=== PATIENT | female | born 1975 | race Two or more races ===

== ENCOUNTER 2024-02-27 23:58 | Emergency (ER) | payer MEDICAID, SELFPAY ==
--- NOTE | 2024-02-28 00:56 | PC.NURSE ---
NA X1 @0056 FOR NINI
--- NOTE | 2024-02-28 01:10 | PC.NURSE ---
NO ANSWER AT ER LOBBY OR OUTSIDE ER TO BE SEEN BY PROVIDER.
--- NOTE | 2024-02-28 01:24 | PC.NURSE ---
NO ANSWER AT ER LOBBY OR OUTSIDE ER TO BE SEEN BY PROVIDER.
== END 2024-02-28 00:45 | disposition left against medical advice (07) ==
PROVIDERS: Emergency Provider Emergency Medicine
DX: Z53.21 Procedure and treatment not carried out due to patient leaving prior to being seen by health care provider (principal)

== ENCOUNTER 2024-06-11 18:15 | Emergency (ER) | payer MEDICAID, SELFPAY ==
[2024-06-11 18:30] VITALS: BP 135/80; PULSE 100; RESP 19; TEMP 36.8; O2SAT 99; BMI 30.2
--- NOTE | 2024-06-11 18:37 | XR_ITS ---
Examination: Ribs, left, with PA chest, 4 views Technique: Chest PA, RIBS AP, RPO, LPO, 4 views Exam date and time: June 11, 2024 1846 hours INDICATIONS: Patient fell today with injury to the left chest, left rib pain FINDINGS: Normal heart size No pneumothorax hernia No acute left rib fractures Impression: No pneumothorax pulmonary contusion or hemothorax No acute rib fractures depicted
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
== END 2024-06-11 20:12 | disposition home or self-care (01) ==
PROVIDERS: Emergency Provider Emergency Medicine; PCP Physician Assistant
DX: S20.212A Contusion of left front wall of thorax, initial encounter (principal); W01.0XXA Fall on same level from slipping, tripping and stumbling without subsequent striking against object, initial encounter
CPT/HCPCS: 71101; 99283

== ENCOUNTER 2024-07-16 22:24 | Emergency (ER) | payer MEDICAID, SELFPAY ==
[2024-07-16 22:25] VITALS: BMI 31.2
[2024-07-16 23:06] VITALS: BP 131/69; PULSE 99; RESP 18; TEMP 36.9; O2SAT 99
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
[2024-07-16] MEDS: ACETAMINOPHEN 500 MG TABLET 1000 MG PO (23:29)
[2024-07-17 00:33] VITALS: RESP 18
== END 2024-07-17 00:42 | disposition home or self-care (01) ==
LOC: SERX 07-17 00:35
PROVIDERS: Emergency Provider Emergency Medicine; PCP Physician Assistant
DX: S00.83XA Contusion of other part of head, initial encounter (principal); Y04.0XXA Assault by unarmed brawl or fight, initial encounter
CPT/HCPCS: 70450; 70486; 99284; A9270

== ENCOUNTER 2024-07-26 10:00 | Emergency (ER) | payer BC, MEDICAID, SELFPAY ==
[2024-07-26 10:02] VITALS: PULSE 103; RESP 20; O2SAT 98
[2024-07-26 10:06] VITALS: BP 139/106; PULSE 103; RESP 19; TEMP 36.6; O2SAT 100; BMI 31.2
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
[2024-07-26] MEDS: ONDANSETRON INJ 2 MG/ML INJ 2 ML 4 MG IV (12:15)
[2024-07-26] MEDS: TETANUS,DIPHTHERIA TOXOIDS/PF (ADULT) 0.5 ML SYRINGE IMi (12:19)
[2024-07-26] MEDS: MORPHINE SULF INJ 10 MG/ML VIAL 4 MG IVP (12:22)
[2024-07-26 13:18] VITALS: BP 127/78; PULSE 86; RESP 18; TEMP 36.6; O2SAT 100
== END 2024-07-26 13:44 | disposition home or self-care (01) ==
PROVIDERS: Emergency Provider Emergency Medicine; PCP Physician Assistant
DX: S01.81XA Laceration without foreign body of other part of head, initial encounter (principal); S22.32XA Fracture of one rib, left side, initial encounter for closed fracture; V00.141A Fall from scooter (nonmotorized), initial encounter; Z23 Encounter for immunization
CPT/HCPCS: 12013; 70450; 71250; 90471; 90714; 96374; 96375; 99284; J2270; J2405

== ENCOUNTER 2024-07-31 13:46 | Emergency (ER) | payer MEDICAID, SELFPAY ==
[2024-07-31 13:47] VITALS: BMI 29.6
[2024-07-31 14:23] VITALS: BP 155/92; PULSE 87; RESP 18; TEMP 36.6; O2SAT 99
--- NOTE | 2024-07-31 14:30 | PD.EDWOUND ---
ED Wound/Laceration-RME/HPI General Chief Complaint: Wound Recheck / Suture Removal Stated Complaint: Removal of stiches from left forehead Time Seen by Provider: 07/31/24 13:58 Arrival date/time: 07/31/24 13:46 RME / HPI RME / HPI narrative: 49-year-old female patient in for evaluation regarding request for removal of sutures. Patient sustained a laceration to the left forehead, about 5 days ago. Came here and repair was done. Patient is denying any complaints Related Data Home Medications ?Medication ?Instructions ?Recorded ?Confirmed naproxen 500 mg tablet (Naprosyn) 500 mg PO BID Migraine Headache/s 02/04/20 propranolol 20 mg tablet 20 mg PO BID 02/04/20 02/04/20 sumatriptan succinate 50 mg tablet 50 mg PO Q2H PRN Nausea 02/04/20 02/04/20 Previous Rx's ?Medication ?Instructions ?Recorded ondansetron HCl 4 mg tablet 4 mg PO Q6H PRN nausea and 12/28/19 (Zofran) vomiting #30 tabs ibuprofen 600 mg tablet 600 mg PO Q6H PRN pain #30 tabs 07/17/24 Allergies Allergy/AdvReac Type Severity Reaction Status Date / Time No Known Allergies Allergy Verified 07/26/24 10:01 Review of Systems Review of Systems Narrative Review of Systems: Review of system reviewed and within normal limits except mentioned in HPI ED Exam Narrative Physical exam: VITAL SIGNS: Reviewed. GENERAL APPEARANCE: Alert and interactive, follows commands, no acute distress, HEAD AND FACE: Non-traumatic. Healed laceration, left forehead with sutures ENT: PERRL, pink conjunctivitis, eyelid no trauma, Mucous membrane moist. NECK: Supple, nontender, no nuchal rigidity. GENITAL: Deferred. NEUROLOGICAL: Gross motor function intact sensory function intact, Appropriate for age. MUSCULOSKELETAL: low back nontender, full range of motion. EXTREMITIES: Nontender, full range of motion. SKIN: Color pink, dry, no rash, no lacerations, no abrasions, no contusions. LYMPHATICS: Deferred. Course Quality Measures none Vital Signs Vital signs: Vital Signs Temperature 97.8 F 07/31/24 14:23 Pulse Rate 87 07/31/24 14:23 Respiratory Rate 18 07/31/24 14:23 Blood Pressure 155/92 H 07/31/24 14:23 Pulse Oximetry (%) 99 07/31/24 14:23 Oxygen Delivery Method Room Air 07/31/24 14:23 Wound / Laceration MDM Narrative MDM Narrative:: 49-year-old female patient in for evaluation regarding request for removal of sutures. Patient sustained a laceration to the left forehead, about 5 days ago. Came here and repair was done. Patient is denying any complaints Removal suture was done by me I did not notice any infection or wound dehiscence. Sterile dressing applied patient tolerated the procedure well Patient data External records reviewed:: None Clinical information provided by:: patient Social determinants that could affect healthcare access:: none Patient has the following chronic illnesses:: None How is presenting disease/condition affected by chronic disease/condition?: no chronic disease Evaluation data The following diagnostics were reviewed and interpreted by me:: other (specify) (None) Lab and/or radiology exams considered but not ordered:: None Interpretation Summary: None Medications / Prescriptions Medications or Prescriptions considered but not ordered:: None Medication administrations:: None Consultations Consultation(s) initiated? (list below): No Diagnosis Wound Differential Diagnosis: other (Encounter for removal of sutures) Most likely diagnosis given after review of the tests above:: Encounter for removal of sutures Admission Indicated Admission indicated?: not indicated Explain why admission is indicated or not indicated:: None Admission Request Was there a request for admission?: No Disposition Plan Disposition Plan: Discharge Discharge Attestation Discharge Attestation: The patient was given an opportunity to ask questions and understood the discharge instructions. Discharge instructions specifically effects, indications for sooner follow up or return to the emergency department, and the expected course of current diagnosis. Patient condition: Stable Discharge Plan Plan Patient Disposition: HOME (Self Care) Disposition Comment: Stable Prescriptions/Referrals Prescriptions/Med Rec: No Action sumatriptan succinate 50 mg Tablet 50 mg PO Q2H PRN (Reason: Nausea) propranolol 20 mg Tablet 20 mg PO BID naproxen [Naprosyn] 500 mg tablet 500 mg PO BID ondansetron HCl [Zofran] 4 mg tablet 4 mg PO Q6H PRN (Reason: nausea and vomiting) Qty: 30 0RF ibuprofen 600 mg tablet 600 mg PO Q6H PRN (Reason: pain) Qty: 30 0RF Problem List Clinical Impression: Encounter for removal of sutures Patient/Caregiver Discharge Instructions Discharge Activity: activity as tolerated Education Materials: ED Stitches/Staple Removal No ... Additional Instructions: Thank you for the opportunity for serving you today. You are stable for discharged . You are advised to: Follow-up with your PCP in 1 to 2 days Return to ED for worsening of symptoms Increase oral fluids Print Language: Armenian Stand Alone Forms: Nerissa Award Info., Patient Portal Info Letter
== END 2024-07-31 14:45 | disposition home or self-care (01) ==
LOC: SERX 14:55
PROVIDERS: Emergency Provider Emergency Medicine; PCP Physician Assistant
DX: Z48.02 Encounter for removal of sutures (principal)
CPT/HCPCS: 99282

== ENCOUNTER 2025-03-15 05:13 | Emergency (ER) | payer MEDICAID, SELFPAY ==
[2025-03-15 05:14] VITALS: BP 176/96; PULSE 108; RESP 18; TEMP 36.6; O2SAT 96
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
[2025-03-15] MEDS: ACETAMINOPHEN 325 MG TABLET 1000 MG PO (05:59)
--- NOTE | 2025-03-15 05:59 | PRELIM_ITS ---
CT scan of the head without intravenous contrast (axial sections with sagittal and coronal reformats). March 15, 2025 at 0537 hours Clinical History: Head injury. Comparison: No prior study is available for comparison. Findings: There is no evidence of intracranial hemorrhage, mass effect or midline shift. The ventricles, sulci and basal cisterns are normal. The mastoid air cells and visualized paranasal sinuses are clear. Impression: No evidence of intracranial hemorrhage, mass effect or calvarial fracture. Report Electronically Signed By: Bishnu Zayas 03/15/2025 5:58:56 AM [EST]
[2025-03-15 06:02] VITALS: BMI 28.6
--- NOTE | 2025-03-15 06:05 | PRELIM_ITS ---
CT maxillofacial without intravenous contrast (axial sections with sagittal and coronal reformats). March 15, 2025 at 0538 hours Clinical History: Orbital fracture. Comparison: No prior study is available for comparison. Findings: There is no acute fracture. The maxillary sinus and orbital dumont are intact. There are no air-fluid levels. The zygomatic arches are intact. The mandible is intact. Impression: No acute fracture. Report Electronically Signed By: Bishnu Zayas 03/15/2025 6:05:03 AM [EST]
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
[2025-03-15 06:23] LABS: HCG,Qualitative Serum Negative
[2025-03-15] MEDS: ONDANSETRON INJ 2 MG/ML INJ 2 ML 4 MG IVP (06:35)
[2025-03-15] MEDS: HYDROmorphone INJ 2 MG/ML VIAL 0.5 MG IVP (06:35)
--- NOTE | 2025-03-15 06:40 | PC.NURSE ---
tcso came to see pt
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
[2025-03-15 06:47] VITALS: PULSE 82; RESP 16; O2SAT 100
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
[2025-03-15] MEDS: LIDOCAINE HCL 1% 20 ML VIAL IM (07:04)
[2025-03-15] MEDS: PROPARACAINE OP SOL 0.5% 15 ML BTL LEFT EYE (07:05)
[2025-03-15] MEDS: FLUORESCEIN SOD 1 MG STRP BOTH EYES (07:15)
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
[2025-03-15 10:23] VITALS: BP 144/88; PULSE 79; RESP 18; TEMP 36.7; O2SAT 100
== END 2025-03-15 10:24 | disposition home or self-care (01) ==
PROVIDERS: Nurse Practitioner Family; Emergency Provider Emergency Medicine; PCP Physician Assistant
DX: S01.112A Laceration without foreign body of left eyelid and periocular area, initial encounter (principal); S22.32XA Fracture of one rib, left side, initial encounter for closed fracture; Y04.2XXA Assault by strike against or bumped into by another person, initial encounter; Y93.01 Activity, walking, marching and hiking; Y92.410 Unspecified street and highway as the place of occurrence of the external cause
CPT/HCPCS: 12013; 36415; 70450; 70486; 71100; 84703; 96374; 96375; 99284; J1171; J2405; J3490; A9270

== ENCOUNTER 2025-03-21 11:00 | Emergency (ER) | payer MEDICAID, SELFPAY ==
[2025-03-21 11:15] VITALS: BP 131/72; PULSE 84; RESP 16; TEMP 36.8; O2SAT 100
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
== END 2025-03-21 13:54 | disposition home or self-care (01) ==
PROVIDERS: Emergency Provider Emergency Medicine
DX: S01.112D Laceration without foreign body of left eyelid and periocular area, subsequent encounter (principal); Y09 Assault by unspecified means
CPT/HCPCS: 99281